=== PATIENT | female | born 1995 | race Two or more races ===

== ENCOUNTER 2021-04-04 16:36 | Emergency (ER) | payer MEDICAID | END 2021-04-04 18:08 | disposition left against medical advice (07) | LOC: ER 16:37 | DX: Z53.21 Procedure and treatment not carried out due to patient leaving prior to being seen by health care provider (principal) ==

== ENCOUNTER 2024-04-19 21:23 | Emergency (ER) | payer MEDICAID ==
[~2024-04-19] VITALS: Ht 162.6 cm; Wt 59.1 kg
[2024-04-19 21:27] VITALS: BP 136/95; PULSE 114; RESP 16; O2SAT 98
[2024-04-19 23:07] VITALS: TEMP 98
== END 2024-04-19 23:09 ==
LOC: ER 21:23
DX: Z02.89 Encounter for other administrative examinations (principal)
CPT/HCPCS: 99283